=== PATIENT | male | born 1965 | race Asian ===

== ENCOUNTER 2021-03-22 13:24 | Emergency (ER) | payer MEDICAID ==
[~2021-03-22] VITALS: Ht 172.7 cm; Wt 84.1 kg
[2021-03-22 13:30] VITALS: BP 151/97
[2021-03-22] MEDS ORDERED: ROSU20TA73 PO (13:32)
== END 2021-03-22 14:26 | disposition home or self-care (01) ==
LOC: EMS 13:24
DX: G44.209 Tension-type headache, unspecified, not intractable (principal); E78.00 Pure hypercholesterolemia, unspecified; Z79.899 Other long term (current) drug therapy
CPT/HCPCS: 99283; Z7502

== ENCOUNTER 2024-09-07 14:11 | Emergency (ER) | payer MEDICAID ==
[~2024-09-07] VITALS: Ht 172.7 cm; Wt 86.4 kg
[~2024-09-07 14:11] MED LIST: CIPR-278 PO; ROSU20TA98 PO; TAMS0.4C94 PO
[2024-09-07 14:23] VITALS: TEMP 99.1
[2024-09-07] MEDS ORDERED: ROSU10TA72 PO (14:50)
[2024-09-07] MEDS: METHOCARBAMOL 500 MG TABLET PO ONE (15:00)
[2024-09-07] MEDS: IBUPROFEN 600 MG TABLET PO ONE (15:02)
[2024-09-07] MEDS: ACETAMINOPHEN 500 MG TABLET PO ONE (15:02)
[2024-09-07] MEDS ORDERED: [UNRECOGNIZED DRUG - CODE] PO (15:23)
[2024-09-07] MEDS ORDERED: METH-812 PO (15:23)
[2024-09-07] MEDS ORDERED: ACET-66 PO (15:23)
[2024-09-07 15:54] VITALS: BP 137/79; PULSE 76; RESP 20; O2SAT 99
== END 2024-09-07 15:59 | disposition home or self-care (01) ==
LOC: EMS 14:11
DX: S29.012A Strain of muscle and tendon of back wall of thorax, initial encounter (principal); E78.00 Pure hypercholesterolemia, unspecified; Z87.442 Personal history of urinary calculi; Z79.899 Other long term (current) drug therapy; X58.XXXA Exposure to other specified factors, initial encounter; Y93.89 Activity, other specified; Y92.89 Other specified places as the place of occurrence of the external cause; Y99.8 Other external cause status
CPT/HCPCS: 99284; Z7502; Z7610

== ENCOUNTER 2024-11-07 18:13 | Emergency (ER) | payer SELFPAY ==
[~2024-11-07] VITALS: Ht 172.7 cm; Wt 90.9 kg
[~2024-11-07 18:13] MED LIST changes: +ACET-66 PO; -CIPR-278 PO; +METH-812 PO; +ROSU10TA72 PO; -ROSU20TA98 PO; -TAMS0.4C94 PO; +[UNRECOGNIZED DRUG - CODE] PO
[2024-11-07 18:16] VITALS: BP 107/74; PULSE 69; RESP 20; TEMP 98.7; O2SAT 99
== END 2024-11-07 19:07 | disposition left against medical advice (07) ==
LOC: EMS 18:13
DX: M54.50 Low back pain, unspecified (principal); Z53.21 Procedure and treatment not carried out due to patient leaving prior to being seen by health care provider

== ENCOUNTER 2024-11-16 09:01 | Emergency (ER) | payer SELFPAY ==
[~2024-11-16] VITALS: Ht 172.7 cm; Wt 90.9 kg
[2024-11-16 09:30] VITALS: TEMP 97.8
[2024-11-16 10:12] LABS: APPEARANCE,URINE CLEAR (CLEAR); BILIRUBIN,URINE NEGATIVE (NEGATIVE); COLOR,URINE LIGHT YELLOW (YELLOW); GLUCOSE, URINE (UA) NEGATIVE (NEGATIVE); KETONES,URINE NEGATIVE (NEGATIVE); LEUKOCYTE ESTERASE ,URINE NEGATIVE (NEGATIVE); NITRATE,URINE NEGATIVE (NEGATIVE); OCCULT BLOOD,URINE NEGATIVE (NEGATIVE); PROTEIN,URINE NEGATIVE (NEGATIVE); SPECIFIC GRAVITIY, URINE 1.015 (1.003-1.030); UROBILINOGEN,URINE <=1.0 mg/dL (<=1.0)
[2024-11-16 10:31] LABS: BASOPHILS % (AUTO) 0.7 % (0.0-2.0); EOSINOPHILS % (AUTO) 1.9 % (1.0-6.0); HEMATOCRIT 43.3 % (41-53); HEMOGLOBIN 14.2 g/dL (13.5-17.5); LYMPHOCYTES % (AUTO) 42.5 % (22.0-44.0); MEAN CORPUSCULAR HEMOGLOBIN 29.4 pg (26.0-34.0); MEAN CORPUSCULAR HGB CONC 32.9 G/dL (31.0-37.0); MEAN CORPUSCULAR VOLUME 89 fL (80-100); MONOCYTES # (AUTO) 0.4 K/uL (0.1-1.0); MONOCYTES % (AUTO) 8.5 % (2.0-9.0); NEUTROPHILS # (AUTO) 2.2 K/uL (1.8-7.7); NEUTROPHILS % (AUTO) 46.4 % (40.0-70.0); PLATELET COUNT (AUTO) 278 K/uL (150-450); RED BLOOD CELL COUNT(AUTO) 4.85 MIL/uL (4.50-5.90); RED CELL DISTRIBUTION WIDTH 12.9 % (11.5-14.5); WHITE BLOOD COUNT (AUTO) 4.7 K/uL (4.5-11.0)
[2024-11-16 10:51] LABS: ALANINE AMINOTRANSFERASE 66 U/L (12-78); ALBUMIN 3.8 g/dL (3.4-5.0); ALKALINE PHOSPHATASE 72 U/L (46-116); ANION GAP 4 mmol/L (8-16); ASPARTATE AMINOTRANSFERASE 38 U/L (15-37); BILIRUBIN,TOTAL 0.9 mg/dL (0.1-1.0); CALCIUM, TOTAL 8.5 mg/dL (8.8-10.5); CARBON DIOXIDE 31 mmol/L (22-29); CHLORIDE 103 mmol/L (98-107); GLUCOSE,RANDOM 94 mg/dL (70-110); LIPASE 85 U/L (16-77); POTASSIUM 4.3 mmol/L (3.5-5.1); SODIUM SERUM 138 mmol/L (136-145); TOTAL PROTEIN, SERUM 7.5 g/dL (6.4-8.2); UREA NITROGEN, BLOOD 12 mg/dL (7-18)
[2024-11-16 11:05] LABS: CREATININE 0.94 mg/dL (0.60-1.30); GLOMERULAR FILTR. RATE CALC > 60 mL/min (>60)
[2024-11-16] MEDS ORDERED: TAMS0.4C94 PO (11:26)
[2024-11-16] MEDS: KETOROLAC TROMETHAMINE 30 MG/ML VIAL IM ONE (11:38)
[2024-11-16] MEDS: LIDOCAINE 5% TRANSDERMAL PATCH TD ONE (11:39)
[2024-11-16] MEDS ORDERED: METH-812 PO (11:59)
[2024-11-16 12:14] VITALS: BP 126/78; PULSE 66; RESP 16; O2SAT 98
== END 2024-11-16 12:55 | disposition home or self-care (01) ==
LOC: EMS 09:08
DX: N40.1 Benign prostatic hyperplasia with lower urinary tract symptoms (principal); M54.50 Low back pain, unspecified; R39.198 Other difficulties with micturition; I10 Essential (primary) hypertension; E78.00 Pure hypercholesterolemia, unspecified; Z87.442 Personal history of urinary calculi; Z79.899 Other long term (current) drug therapy
CPT/HCPCS: 99283; 80048; 80076; 81003; 83690; 85025; 36415; 96372; J1885